=== PATIENT | male | born 1995 ===

== ENCOUNTER 2017-04-09 05:40 | Emergency (ER) | payer OTHER, SELFPAY ==
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
== END 2017-04-09 06:05 | disposition home or self-care (01) ==
LOC: ERS 05:40
DX: S80.01XA Contusion of right knee, initial encounter (principal); V53.6XXA Passenger in pick-up truck or van injured in collision with car, pick-up truck or van in traffic accident, initial encounter